=== PATIENT | male | born 1965 | race Caucasian/White ===

== ENCOUNTER 2020-08-19 08:40 | Outpatient (REF) | payer OTHER, SELFPAY ==
--- NOTE | 2020-08-19 08:45 | US_ITS ---
EXAMINATION: US ABDOMEN COMPLETE CLINICAL INFORMATION: Right upper quadrant pain. COMPARISON: None. TECHNIQUE: Real-time imaging of the abdominal viscera. FINDINGS: PANCREAS: The head and the body of pancreas are homogeneous in echotexture. The tail is obscured by overlying gas. ABDOMINAL AORTA: The proximal, mid, and distal segments are normal in caliber. INFERIOR VENA CAVA: Visualized portions are normal. LIVER: The liver is normal size, contour with diffuse increased echogenicity. No focal hepatic lesion. There is no intrahepatic biliary duct dilatation seen. GALLBLADDER: Normal. The gallbladder is physiologically distended without evidence of stones, sludge, polyps, wall thickening or pericholecystic fluid. COMMON BILE DUCT: Normal in caliber measuring 0.3 cm in diameter. RIGHT KIDNEY: Normal. No hydronephrosis. No renal calculi or focal parenchymal lesions. The kidney measures 11.4 cm in maximum dimension. LEFT KIDNEY: There is anechoic cyst midpole measuring 0.9 x 0.8 x 0.6 cm and a lower pole cyst measures 0.5 x 0.5 x 0.8 cm. No hydronephrosis or renal calculi. The kidney measures 11.7 cm in maximum dimension. SPLEEN: Normal. The spleen measures 9.0 cm in maximum dimension. FREE FLUID: None. US/US abdomen complete IMPRESSION: Left renal cyst. No echogenic renal calculi or hydronephrosis. Mild hepatic steatosis without focal lesion. The rest of the abdominal ultrasound is unremarkable.
== END 2020-08-19 08:41 | disposition home or self-care (01) ==
LOC: HO.US 08:40
PROVIDERS: PCP Nurse Practitioner Family; Visit Provider Nurse Practitioner Family
DX: R10.11 Right upper quadrant pain (principal)
CPT/HCPCS: 76700

== ENCOUNTER 2021-08-09 10:05 | Emergency (ER) | payer OTHER, SELFPAY ==
[2021-08-09 10:11] VITALS: BP 150/91; PULSE 97; RESP 20; TEMP 36.1; O2SAT 93; BMI 26.6
[2021-08-09 12:36] LABS: COVID-19 Test Negative (Negative)
--- NOTE | 2021-08-09 14:22 | ED_ITS ---
HPI - URI/Sore Throat General Chief Complaint: Upper Respiratory Symptoms Stated Complaint: covid symptoms Time Seen by Provider: 08/09/21 10:50 Source: patient Mode of arrival: ambulatory Limitations: no limitations History of Present Illness HPI Narrative: 56-year-old male presents the emergency department requesting covid testing. He is asymptomatic family members are sick at home. Fully vaccinated with two doses of pfizer. Denies SOB, CP, D[place], weakness. Eating and drinking well. In good spirits. No other complaints at this time. MD elicited complaint: other (No complaints ) Exacerbating factors: nothing Relieving factors: nothing Associated symptoms: denies other symptoms Treatments prior to arrival: none Related Data Previous Rx's Medication Instructions Recorded duloxetine 30 mg capsule,delayed 30 mg PO DAILY #30 cap 01/06/21 release meloxicam 15 mg tablet 15 mg PO DAILY #30 tab 01/06/21 Allergies Allergy/AdvReac Type Severity Reaction Status Date / Time No Known Allergies Allergy Verified 01/06/21 10:31 Review of Systems Review of Systems: Constitutional : No Weight loss, No Fever, No Chills, No Fatigue, No Malaise ENT/Mouth : No sore throat, No Rhinorrhea Eyes: No Eye Pain, No Swelling, No Redness Cardiovascular : No Chest Pain, No SOB, No Dyspnea on Exertion, No Orthopnea, No Edema, No Palpitations Respiratory : No Cough, No Sputum, No Wheezing Gastrointestinal : No Nausea, No Vomiting, No Diarrhea, No Constipation, No abdominal Pain, No Hematochezia, No Melena Genitourinary : No Dysuria, No Urinary Frequency, No Hematuria, Musculoskeletal : No joint pain, No Myalgias, No Joint Swelling Skin : No Skin Lesions, No rash Neuro : No Weakness, No Numbness, No Dizziness, No Headache Psych : No Anxiety/Panic, No Depression All other systems reviewed and are negative Yes all other systems are reviewed and are negative [facility] Past Medical History Attestation statement: The following information was validated with the patient. Source: old records reviewed and nursing notes reviewed Medical History Anxiety and depression Asthma GERD (gastroesophageal reflux disease) High cholesterol Hypertension Impaired glucose tolerance Insomnia Osteoarthritis of right knee Polysubstance abuse Right upper quadrant abdominal pain Tobacco abuse Surgical History History of lumbar surgery History of surgery on arm Family History Family History Mother Diabetes Kidney failure High blood pressure Renal cancer Father No problems noted. Maternal Grandfather Stomach cancer Maternal Grandmother Skin cancer Social History Social History Housing: Apartment Alcohol intake: never Patient Tobacco Use Status: Current everyday Tobacco user Cigarettes Per Day: 8 Second Hand Smoke Exposure: No Advance Directives: No Advance Directives Information Provided: No service: No Current occupational status: disabled Physical Exam Vital Signs: Vital Signs: Last Vital Signs Temp 96.9 F 08/09/21 10:11 Pulse 97 08/09/21 10:11 Resp 20 08/09/21 10:11 BP 150/91 H 08/09/21 10:11 Pulse Ox 93 08/09/21 10:11 BMI result Body Mass Index 26.6 VSS Appearance: Alert.? Oriented X3.? No acute distress.? Head: Normocephalic, atraumatic, no step-offs or deformities Eyes: Pupils equal, round and reactive to light.?? Neck: Normal inspection.? Neck supple.? CVS: Normal heart rate and rhythm.? Pulses normal.? Respiratory: No respiratory distress.? Breath sounds normal.? Abdomen: Soft and nontender.? Skin: Skin warm and dry.? Normal skin color.? Normal skin turgor.? Extremities: No lower extremity edema.? No calf ttp. 5/5 strength to bilateral upper and lower extremities Neuro: Oriented X 3.? No motor deficit.? No sensory deficit. Course Reevaluation(s) Reevaluation #1: COVID negative today. I have advised him to retest in 2-4 days due to his close contacts. I have advised him on red flag symptoms in have told him to return with new or worsening symptoms. Comfortable discharge home Time: 14:25 MDM - URI/Sore Throat MDM Narrative Medical decision making narrative: 1423 56 yo male presnts requesting covid testing. Is asymptomatic. Fully vaccinated with Pfizer. Physical examination benign Plan is to obtain a COVID test Medical Records Attestation: I reviewed the patient's medical records. Lab Data Attestation: I reviewed the patient's lab results. Labs: Lab Results 08/09/21 Range/Units 11:41 COVID-19 (JAKE) Negative (Negative) COVID-19 Clin Com See Note Critical Care Time Critical Care Time Critical Care Time: No Discharge Plan Discharge Clinical Impression: COVID-19 ruled out by laboratory testing Patient Disposition: Home, Self-Care Additional Instructions: You tested negative today. I suggest retesting in 2-4 days. If you develop severe symptoms weakness, chest pain, shortness of breath present to an emergency department or call 911 Take your medications as prescribed.? If you were prescribed antibiotics today, it is important that you take your medication to their entirety, do not skip any doses, do not finish them early. Follow-up with your primary care provider/family medicine physician assistant this week. Return to the emergency department with new or worsening symptoms. In case of emergency call 911? Prescriptions: No Action meloxicam 15 mg tablet 15 mg PO DAILY Qty: 30 RF: 2 duloxetine 30 mg capsule,delayed release(DR/EC) 30 mg PO DAILY Qty: 30 RF: 3 Referrals: Physician,Unknown J [Primary Care Provider] - 2 days
--- NOTE | 2021-08-09 14:40 | PC.NURSE ---
this patient was seen/discharged by PA in [facility]
== END 2021-08-09 14:41 | disposition home or self-care (01) ==
PROVIDERS: Physician Assistant; Emergency Provider Emergency Medicine
DX: Z20.822 Contact with and (suspected) exposure to COVID-19 (principal); I10 Essential (primary) hypertension; E78.5 Hyperlipidemia, unspecified; F17.200 Nicotine dependence, unspecified, uncomplicated
CPT/HCPCS: 87635; 99283

== ENCOUNTER 2021-09-29 10:28 | Outpatient (REF) | payer OTHER, SELFPAY ==
[2021-09-29 12:46] LABS: Hematocrit 50.4 % (42.0-52.0); Hemoglobin 16.6 g/dl (14.0-18.0); Mean Corpuscular HGB Conc 32.9 g/dl (31.0-36.0); Mean Corpuscular Hemoglobin 32.1 pg (27.0-33.0); Mean Corpuscular Volume 97.5 fL (80.0-98.0); Mean Platelet Volume 11.9 fL (9.4-12.4); Platelet Count 176 X10*3/uL (160-400); Red Blood Count 5.17 X10*6/uL (4.60-5.80); Red Cell Distribution Width 13.8 % (11.0-16.0); White Blood Count 8.9 X10*3/uL (4.8-10.8)
[2021-09-29 13:10] LABS: Alanine Aminotransferase 29 U/L (0-40); Albumin Level 4.6 g/dL (3.5-5.0); Alkaline Phosphatase 81 U/L (39-117); Anion Gap 11 (12-20); Aspartate Amino Transferase 23 U/L (5-37); Bilirubin Total 0.9 mg/dL (0.0-1.0); Blood Urea Nitrogen 12 mg/dL (9-16); Carbon Dioxide 31 mmol/L (22-29); Chloride 104 mmol/L (96-108); Estimated Glomerular Filt Rate > 60; Glucose Random 84 mg/dL (60-115); Potassium 4.3 mmol/L (3.3-5.1); Sodium 142 mmol/L (135-145); Total Protein 7.9 g/dL (6.5-8.0)
[2021-09-29 13:12] LABS: Estimated Average Glucose 117 mg/dL; Hemoglobin A1c % 5.7 %
[2021-09-29 13:34] LABS: TSH reflex Free T4 1.28 uIU/mL (0.32-4.0)
[2021-09-29 13:36] LABS: Prostate Specific Antigen Scr 1.19 ng/mL (<0.05-4.0)
[2021-09-29 13:42] LABS: Folate 16.4 ng/mL (> or = 4.0); Vitamin B12 568 pg/mL (200-900)
[2021-09-29 14:37] LABS: Appearance Urine HAZY; Color Urine YELLOW; Glucose Urine UA NEG (NEG); Leukocyte Esterase Urine NEG (NEG); Nitrite Urine NEG (NEG); PH 5.5 (5.0-8.0); Specific Gravity - Urine >= 1.030 (1.005-1.025); Urine Blood 1+ (NEG); Urine Ketones NEG (NEG); Urine Protein NEG (NEG-TRACE)
[2021-09-29 14:52] LABS: Mucus Urine 1+ /LPF; RBC Urine 0-2 /HPF (0); Squamous Epithelial Cell Urine TRACE /LPF
== END 2021-09-29 10:29 | disposition home or self-care (01) ==
LOC: HO.LAB 10:28
PROVIDERS: Internal Medicine; Visit Provider Nurse Practitioner Family
DX: K21.9 Gastro-esophageal reflux disease without esophagitis (principal); K59.04 Chronic idiopathic constipation; R10.11 Right upper quadrant pain; E11.9 Type 2 diabetes mellitus without complications; Z12.5 Encounter for screening for malignant neoplasm of prostate
CPT/HCPCS: 36415; 80053; 81001; 82607; 82746; 83036; 84153; 84443; 85027; 99202

== ENCOUNTER → 2021-11-03 08:56 | Outpatient (BNVA) | payer OTHER, SELFPAY | PROVIDERS: Visit Provider Nurse Practitioner Family | DX: K21.9 Gastro-esophageal reflux disease without esophagitis (principal); K59.04 Chronic idiopathic constipation; R10.12 Left upper quadrant pain | CPT/HCPCS: 99212 ==

== ENCOUNTER 2023-03-31 15:26 | Emergency (ER) | payer OTHER, SELFPAY ==
[2023-03-31 15:39] VITALS: BP 122/77; PULSE 74; RESP 16; O2SAT 98; BMI 20.6
--- NOTE | 2023-03-31 15:39 | ED_ITS ---
HPI - Abdominal Pain General Chief Complaint: Abdominal Pain Stated Complaint: left side abd pain Related Data Previous Rx's Medication Instructions Recorded duloxetine 30 mg capsule,delayed 30 mg PO DAILY #30 caps 01/06/21 release meloxicam 15 mg tablet 15 mg PO DAILY #30 tabs 01/06/21 methylcellulose (laxative) 500 mg 500 mg PO DAILY #30 tabs 09/29/21 tablet (Citrucel) sennosides 8.6 mg tablet (Natural 8.6 mg PO BEDTIME constipation #30 09/29/21 Senna Laxative) tabs Allergies Allergy/AdvReac Type Severity Reaction Status Date / Time No Known Allergies Allergy Verified 11/03/21 09:19 [facility] Past Medical History Medical History Anxiety and depression Asthma GERD (gastroesophageal reflux disease) High cholesterol Hypertension Impaired glucose tolerance Insomnia Osteoarthritis of right knee Polysubstance abuse Right upper quadrant abdominal pain Tobacco abuse Surgical History History of lumbar surgery History of surgery on arm Family History Family History Mother Diabetes Kidney failure High blood pressure Renal cancer Father No problems noted. Maternal Grandfather Stomach cancer Maternal Grandmother Skin cancer Social History Social History Housing: Apartment Alcohol intake: never Patient Tobacco Use Status: Current everyday Tobacco user Cigarettes Per Day: 8 Second Hand Smoke Exposure: No Advance Directives: No Advance Directives Information Provided: No service: No Current occupational status: disabled Physical Exam ED Vital Signs: BMI result Body Mass Index 20.6 Course Course Course Narrative: This is a rapid medical exam. Deferred additional HPI, ROS, PE to primary provider. 57 yo male with history of anxiety, depression, GERD, HTN, HLD here with complaints of left flank pain x several days. Denies alcohol use/drug use. +urinary retention/urgency, nausea/vomiting. No fevers, chills. Will obtain labs, UA VSS Medical Decision Making Lab Data 03/31/23 16:32 03/31/23 16:33 Labs: Lab Results 03/31/23 03/31/23 Range/Units 16:32 16:33 WBC 12.9 H (4.8-10.8) X10*3/uL RBC 3.82 L D (4.60-5.80) X10*6/uL Hgb 13.0 L D (14.0-18.0) g/dl Hct 37.8 L D (42.0-52.0) % MCV 99.0 H (80.0-98.0) fL MCH 34.0 H (27.0-33.0) pg MCHC 34.4 (31.0-36.0) g/dl RDW 14.2 (11.0-16.0) % Plt Count 177 (160-400) X10*3/uL MPV 10.9 (9.4-12.4) fL Immature Gran % (Auto) 0.4 (0.0-0.4) % Neut % (Auto) 61.3 (45-73) % Lymph % (Auto) 27.4 (20-40) % [place] % (Auto) 9.7 (2-11) % Eos % (Auto) 0.9 (0-4) % Baso % (Auto) 0.3 (0-2) % Lymph # (Auto) 3.5 (1.2-4.9) X10*3/uL [place] # (Auto) 1.3 H (0.1-1.2) X10*3/uL Eos # (Auto) 0.1 (0.0-0.4) X10*3/uL Baso # (Auto) 0.0 (0.0-0.2) X10*3/uL Abs Immat Gran (auto) 0.05 H (0.00-0.03) X10*3/uL Absolute Neuts (auto) 7.9 (2.0-8.3) x10*3/uL Absolute Nucleated RBC 0.000 (0.0-0.012) X10*3/uL Nucleated RBC % (auto) 0.0 (0.0-0.2) /100WBC Sodium 144 (135-145) mmol/L Potassium 3.6 (3.3-5.1) mmol/L Chloride 108 (96-108) mmol/L Carbon Dioxide 30 H (22-29) mmol/L Anion Gap 10 L (12-20) BUN 18 H (9-16) mg/dL Creatinine 1.16 (0.5-1.4) mg/dL Estim Creat Clear Calc 62.0 Estimated GFR > 60 Random Glucose 66 (60-115) mg/dL Calcium 9.8 (8.4-10.2) mg/dL Total Bilirubin 0.5 (0.0-1.0) mg/dL Direct Bilirubin 0.1 (0.0-0.5) mg/dL AST 19 (5-37) U/L ALT 20 (0-40) U/L Alkaline Phosphatase 59 (39-117) U/L Total Protein 6.7 (6.5-8.0) g/dL Albumin 3.9 (3.5-5.0) g/dL Lipase 9 (8-78) U/L Urine Color Dark Yellow Urine Appearance Cloudy Urine pH 5.5 (5.0-9.0) Ur Specific [place] 1.025 (1.005-1.025) Urine Protein 100 (2+) H (Neg-Trace) mg/dL Urine Glucose (UA) Negative (Negative) mg/dL Urine Ketones Negative (Negative) mg/dL Urine Blood Large (3+) H (Negative) Urine Nitrite Negative (Negative) Ur Leukocyte Esterase Small (1+) H (Negative) Urine RBC >20 H (0-2) /HPF Urine WBC 21-50 H (0-5) /HPF Ur Squamous Epith Cells 3-5 (0-2) /HPF Urine Bacteria None Seen (None Seen) Hyaline Casts 3-5 (0-2) /LPF Discharge Plan Discharge Clinical Impression: Diagnosis unknown, Back pain Patient Disposition: Elopement Prescriptions: No Action meloxicam 15 mg tablet 15 mg PO DAILY Qty: 30 2RF duloxetine 30 mg capsule,delayed release(DR/EC) 30 mg PO DAILY Qty: 30 3RF Citrucel 500 mg tablet 500 mg PO DAILY Qty: 30 2RF Rx Instructions: take it with full glass of water sennosides [Natural Senna Laxative] 8.6 mg tablet 8.6 mg PO BEDTIME Qty: 30 3RF Interventions: ED Discharge Assessment Last Done: 03/31/23 18:56 Discharge Date/Time: 03/31/23 18:57
[2023-03-31 16:39] LABS: MANUAL DIFF FLAG NO
[2023-03-31 16:40] LABS: Basophils Percent Auto 0.3 % (0-2); Eosinophils Absolute Auto 0.1 X10*3/uL (0.0-0.4); Eosinophils Percent Auto 0.9 % (0-4); Hematocrit 37.8 % (42.0-52.0); Imm Gran Abs Auto 0.05 X10*3/uL (0.00-0.03); Imm Gran Pct Auto 0.4 % (0.0-0.4); Lymphocytes Absolute Auto 3.5 X10*3/uL (1.2-4.9); Lymphocytes Percent Auto 27.4 % (20-40); Mean Corpuscular HGB Conc 34.4 g/dl (31.0-36.0); Mean Platelet Volume 10.9 fL (9.4-12.4); Monocytes Absolute Auto 1.3 X10*3/uL (0.1-1.2); Monocytes Percent Auto 9.7 % (2-11); Neutrophils Absolute Auto 7.9 x10*3/uL (2.0-8.3); Neutrophils Percent Auto 61.3 % (45-73); Platelet Count 177 X10*3/uL (160-400); Red Blood Count 3.82 X10*6/uL (4.60-5.80); Red Cell Distribution Width 14.2 % (11.0-16.0); White Blood Count 12.9 X10*3/uL (4.8-10.8)
[2023-03-31 16:42] LABS: Appearance Urine Cloudy; Color Urine Dark Yellow; Glucose Urine UA Negative (Negative); Leukocyte Esterase Urine Small (1+) (Negative); Nitrite Urine Negative (Negative); PH 5.5 (5.0-9.0); Specific Gravity - Urine 1.025 (1.005-1.025); UMIC TRIGGER UACC YES; Urine Blood Large (3+) (Negative); Urine Ketones Negative (Negative); Urine Protein 100 (2+) mg/dL (Neg-Trace)
[2023-03-31 16:47] LABS: Bacteria Urine None Seen (None Seen); RBC Urine >20 /HPF (0-2); UACC Culture Trigger YES; WBC Urine 21-50 /HPF (0-5)
[2023-03-31 16:59] LABS: Alanine Aminotransferase 20 U/L (0-40); Albumin Level 3.9 g/dL (3.5-5.0); Alkaline Phosphatase 59 U/L (39-117); Anion Gap 10 (12-20); Aspartate Amino Transferase 19 U/L (5-37); Bilirubin Direct 0.1 mg/dL (0.0-0.5); Bilirubin Total 0.5 mg/dL (0.0-1.0); Blood Urea Nitrogen 18 mg/dL (9-16); Calcium 9.8 mg/dL (8.4-10.2); Carbon Dioxide 30 mmol/L (22-29); Chloride 108 mmol/L (96-108); Estimated Glomerular Filt Rate > 60; Glucose Random 66 mg/dL (60-115); Lipase 9 U/L (8-78); Potassium 3.6 mmol/L (3.3-5.1); Sodium 144 mmol/L (135-145); Total Protein 6.7 g/dL (6.5-8.0)
== END 2023-03-31 18:57 | disposition left against medical advice (07) ==
PROVIDERS: Nurse Practitioner Family; Emergency Provider Emergency Medicine
DX: R10.9 Unspecified abdominal pain (principal); R11.2 Nausea with vomiting, unspecified; R39.198 Other difficulties with micturition
CPT/HCPCS: 36415; 80048; 80076; 81001; 83690; 85025; 87086; 99282; 99283

== ENCOUNTER 2024-05-27 17:59 | Emergency (ER) | payer OTHER, SELFPAY ==
--- NOTE | ~2024-05-27 | XR_ITS ---
EXAMINATION: XR HAND, LEFT CLINICAL INFORMATION: Pain, infection COMPARISON: None available. TECHNIQUE: PA, lateral, and oblique views of the left hand. FINDINGS: The bones are normal. No fracture. Alignment is anatomic. Joint spaces are maintained. No erosions or soft tissue calcifications. No erosions. Soft tissue swelling of the thenar eminence. XR/XR hand LT min 3V IMPRESSION: Soft tissue swelling of the thenar eminence. Electronically signed by: Meagan Painter MD 05/27/2024 06:36 PM EDT RP
[2024-05-27 18:02] VITALS: BP 142/79; PULSE 74; RESP 16; TEMP 36.6; O2SAT 99; BMI 22.1
--- NOTE | 2024-05-27 18:15 | ED.SKABFB ---
HPI - Skin/Abscess/Foreign Bdy General Chief complaint: Wound/Laceration Stated complaint: rt hand wounds Time Seen by Provider: 05/27/24 21:51 Source: patient Mode of arrival: ambulatory Limitations: no limitations History of Present Illness ED Provider: karthikeyan MENDOZA narrative: Patient apparently got burned on the base of left thumb about 3 days ago from the radiator since then wound is open getting infected with swelling and redness no fever no chills Related Data Previous Rx's ?Medication ?Instructions ?Recorded duloxetine 30 mg capsule,delayed 30 mg PO DAILY #30 caps 01/06/21 release meloxicam 15 mg tablet 15 mg PO DAILY #30 tabs 01/06/21 methylcellulose (laxative) 500 mg 500 mg PO DAILY #30 tabs 09/29/21 tablet (Citrucel) sennosides 8.6 mg tablet (Natural 8.6 mg PO BEDTIME constipation #30 09/29/21 Senna Laxative) tabs cephalexin 500 mg capsule 500 mg PO QID 10 days #40 caps 05/27/24 doxycycline hyclate 100 mg tablet 100 mg PO BID #20 tabs 05/27/24 Allergies Allergy/AdvReac Type Severity Reaction Status Date / Time No Known Allergies Allergy Verified 05/27/24 18:16 Review of Systems Review of Systems: Yes all other systems are reviewed and are negative PMFSH Past Medical History Medical History Osteoarthritis of right knee Asthma Insomnia Polysubstance abuse Tobacco abuse GERD (gastroesophageal reflux disease) Anxiety and depression Impaired glucose tolerance Right upper quadrant abdominal pain High cholesterol Hypertension Surgical History History of surgery on arm History of lumbar surgery Family History Family History Mother Diabetes Kidney failure High blood pressure Renal cancer Father No problems noted. Maternal Grandfather Stomach cancer Maternal Grandmother Skin cancer Social History Social History Housing: Apartment Alcohol intake: never Patient Tobacco Use Status: Current everyday Tobacco user Cigarettes Per Day: 8 Second Hand Smoke Exposure: No Advance Directives: No Advance Directives Information Provided: No service: No Current occupational status: disabled Physical Exam Vital Signs: Vital Signs: Last Vital Signs Temp 98.2 F 05/27/24 21:33 Pulse 75 05/27/24 21:33 Resp 16 05/27/24 21:33 BP 132/79 05/27/24 21:33 Pulse Ox 96 05/27/24 21:33 O2 Del Method Room Air 05/27/24 21:33 BMI result Body Mass Index 22.1 Extrem: Hand/finger images: 1. Infected open wound with surrounding swelling and redness no fluctuance neurovascular intact Course Course Course Narrative: This is an RME: Additional HPI, ROS, PE not included below will be deferred to primary provider. RME assessment and note performed by: Mee Gonzáles PA-C This is a 68-mvez-kjd-male, with a hx of HTN, HLD, GERD, anxiety, who presents to the ER with complaints of left hand redness and swelling x 3 days. Patient accidentally burned his left hand on a radiator several days ago. He reports increased pain, swelling, drainage. Patient has lymphangitic spread up into his arm. Plan: Labs, xray, further er eval needed Medications Administered Discontinued Medications Generic Name Dose Route Start Last Admin Trade Name Freq PRN Reason Stop Dose Admin Bacitracin 1 appl 05/27/24 22:12 05/27/24 22:35 Bacitracin Oint 0.9 Gm Packet TOPICAL 05/27/24 22:13 1 appl ONCE ONE Administration Protocol Bacitracin 2 appl 05/27/24 22:34 05/27/24 22:36 Bacitracin Oint 0.9 Gm Packet TOPICAL 05/27/24 22:35 2 appl ONCE ONE Administration Protocol Medical Decision Making Medical Decision Making MDM Narrative: Wound cleaned antibiotic applied give doxycycline cephalexin x-ray negative for deeper bony changes Lab Data MDM Lab Attestation statement: I reviewed the patient's lab results. 05/27/24 18:33 05/27/24 18:33 Labs: Lab Results 05/27/24 Range/Units 18:33 WBC 13.5 H (4.8-10.8) X10*3/uL RBC 4.24 L (4.60-5.80) X10*6/uL Hgb 14.4 (14.0-18.0) g/dl Hct 41.3 L (42.0-52.0) % MCV 97.4 (80.0-98.0) fL MCH 34.0 H (27.0-33.0) pg MCHC 34.9 (31.0-36.0) g/dl RDW 13.7 (11.0-16.0) % Plt Count 183 (160-400) X10*3/uL MPV 10.2 (9.4-12.4) fL Immature Gran % (Auto) 0.2 (0.0-0.4) % Neut % (Auto) 67.6 (45-73) % Lymph % (Auto) 20.7 (20-40) % [place] % (Auto) 10.2 (2-11) % Eos % (Auto) 0.9 (0-4) % Baso % (Auto) 0.4 (0-2) % Lymph # (Auto) 2.8 (1.2-4.9) X10*3/uL [place] # (Auto) 1.4 H (0.1-1.2) X10*3/uL Eos # (Auto) 0.1 (0.0-0.4) X10*3/uL Baso # (Auto) 0.1 (0.0-0.2) X10*3/uL Abs Immat Gran (auto) 0.03 (0.00-0.03) X10*3/uL Absolute Neuts (auto) 9.1 H (2.0-8.3) x10*3/uL Absolute Nucleated RBC 0.000 (0.0-0.012) X10*3/uL Nucleated RBC % (auto) 0.0 (0.0-0.2) /100WBC ESR 18 H (0-15) MM/HR Sodium 143 (135-145) mmol/L Potassium 3.3 (3.3-5.1) mmol/L Chloride 106 (96-108) mmol/L Carbon Dioxide 27 (22-29) mmol/L Anion Gap 13 (12-20) BUN 12 (9-16) mg/dL Creatinine 0.72 (0.5-1.4) mg/dL Estim Creat Clear Calc 106.0 Estimated GFR > 60 Random Glucose 82 (60-115) mg/dL Lactic Acid 0.8 (0.5-2.0) mmol/L Calcium 9.6 (8.4-10.2) mg/dL Magnesium 2.4 (1.6-2.6) mg/dL Total Bilirubin 0.4 (0.0-1.0) mg/dL Direct Bilirubin 0.1 (0.0-0.5) mg/dL AST 23 (5-37) U/L ALT 21 (0-40) U/L Alkaline Phosphatase 86 (39-117) U/L C-Reactive Protein 2.76 H (< or = 0.50) mg/dL Total Protein 7.6 (6.5-8.0) g/dL Albumin 4.3 (3.5-5.0) g/dL Independent Interpretation I performed an independent interpretation of an: Plain X-Ray Radiology Impression Discussion of test interpretation with radiology: I have reviewed the radiologist's reading. Discharge Plan Discharge Clinical Impression: Wound cellulitis Patient Disposition: Home, Self-Care Instructions: Cellulitis (ED) Additional Instructions: Local care of the wound as advised Take antibiotic as prescribed Follow with your PCP as needed Prescriptions: New cephalexin 500 mg capsule 500 mg PO QID 10 Days Qty: 40 0RF doxycycline hyclate 100 mg tablet 100 mg PO BID Qty: 20 0RF No Action meloxicam 15 mg tablet 15 mg PO DAILY Qty: 30 2RF duloxetine 30 mg capsule,delayed release(DR/EC) 30 mg PO DAILY Qty: 30 3RF Citrucel 500 mg tablet 500 mg PO DAILY Qty: 30 2RF Rx Instructions: take it with full glass of water sennosides [Natural Senna Laxative] 8.6 mg tablet 8.6 mg PO BEDTIME Qty: 30 3RF Print Language: Portuguese
[2024-05-27 18:49] LABS: MANUAL DIFF FLAG NO
[2024-05-27 18:51] LABS: Basophils Absolute Auto 0.1 X10*3/uL (0.0-0.2); Basophils Percent Auto 0.4 % (0-2); Eosinophils Absolute Auto 0.1 X10*3/uL (0.0-0.4); Eosinophils Percent Auto 0.9 % (0-4); Hematocrit 41.3 % (42.0-52.0); Hemoglobin 14.4 g/dl (14.0-18.0); Imm Gran Abs Auto 0.03 X10*3/uL (0.00-0.03); Imm Gran Pct Auto 0.2 % (0.0-0.4); Lymphocytes Absolute Auto 2.8 X10*3/uL (1.2-4.9); Lymphocytes Percent Auto 20.7 % (20-40); Mean Corpuscular HGB Conc 34.9 g/dl (31.0-36.0); Mean Corpuscular Volume 97.4 fL (80.0-98.0); Mean Platelet Volume 10.2 fL (9.4-12.4); Monocytes Absolute Auto 1.4 X10*3/uL (0.1-1.2); Monocytes Percent Auto 10.2 % (2-11); Neutrophils Absolute Auto 9.1 x10*3/uL (2.0-8.3); Neutrophils Percent Auto 67.6 % (45-73); Platelet Count 183 X10*3/uL (160-400); Red Blood Count 4.24 X10*6/uL (4.60-5.80); Red Cell Distribution Width 13.7 % (11.0-16.0); White Blood Count 13.5 X10*3/uL (4.8-10.8)
[2024-05-27 19:02] LABS: Lactic Acid 0.8 mmol/L (0.5-2.0)
[2024-05-27 19:08] LABS: Alanine Aminotransferase 21 U/L (0-40); Albumin Level 4.3 g/dL (3.5-5.0); Alkaline Phosphatase 86 U/L (39-117); Anion Gap 13 (12-20); Aspartate Amino Transferase 23 U/L (5-37); Bilirubin Direct 0.1 mg/dL (0.0-0.5); Bilirubin Total 0.4 mg/dL (0.0-1.0); Blood Urea Nitrogen 12 mg/dL (9-16); C Reactive Protein 2.76 mg/dL (< or = 0.50); Calcium 9.6 mg/dL (8.4-10.2); Carbon Dioxide 27 mmol/L (22-29); Chloride 106 mmol/L (96-108); Estimated Glomerular Filt Rate > 60; Glucose Random 82 mg/dL (60-115); Magnesium 2.4 mg/dL (1.6-2.6); Potassium 3.3 mmol/L (3.3-5.1); Sodium 143 mmol/L (135-145); Total Protein 7.6 g/dL (6.5-8.0)
[2024-05-27 19:53] LABS: Erythrocyte Sedimentation Rate 18 MM/HR (0-15)
[2024-05-27 21:33] VITALS: BP 132/79; PULSE 75; RESP 16; TEMP 36.8; O2SAT 96
[2024-05-27] MEDS: Bacitracin Oint 0.9 GM PACKET 1 APPL TOPICAL (22:35)
[2024-05-27] MEDS: Bacitracin Oint 0.9 GM PACKET 2 APPL TOPICAL (22:36)
[2024-05-27] MEDS: cephALEXin 500 MG CAPSULE PO (22:42)
[2024-05-27] MEDS: Doxycycline Monohydrate 100 MG CAPSULE PO (22:42)
[2024-05-27] MEDS: Diphth,Pertus(ACell),Tet Adult 0.5 ML SYRINGE IM (22:42)
[2024-05-27 22:46] VITALS: BP 144/84; PULSE 75; RESP 18; TEMP 36.8; O2SAT 97
[2024-05-27 22:48] VITALS: BP 144/84; PULSE 75; RESP 18; TEMP 36.8; O2SAT 97
== END 2024-05-27 22:48 | disposition home or self-care (01) ==
PROVIDERS: Physician Assistant Medical; Emergency Provider Internal Medicine
DX: L03.012 Cellulitis of left finger (principal); T23.012A Burn of unspecified degree of left thumb (nail), initial encounter; X16.XXXA Contact with hot heating appliances, radiators and pipes, initial encounter; Y93.9 Activity, unspecified; Y92.039 Unspecified place in apartment as the place of occurrence of the external cause; Y99.9 Unspecified external cause status; Z23 Encounter for immunization
CPT/HCPCS: 36415; 73130; 80048; 80076; 83605; 83735; 85025; 85652; 86140; 87040; 90471; 90715; 99284

== ENCOUNTER 2024-12-25 12:04 | Emergency (ER) | payer OTHER, SELFPAY ==
--- NOTE | ~2024-12-25 | XR_ITS ---
EXAMINATION: XR HAND, LEFT CLINICAL INFORMATION: pain, numb COMPARISON: None available. TECHNIQUE: PA, lateral, and oblique views of the left hand. FINDINGS: No fracture, dislocation, or suspicious bone lesion. No malalignment. Negative ulnar variance. Mild osteoarthrosis present in the first MCP joint, as well as the first CMC joint and radiocarpal joint. Normal-appearing PIPs and DIPs. No soft tissue abnormalities. XR/XR hand LT min 3V IMPRESSION: No acute findings left hand. Electronically signed by: Jesse Pardo MD 12/25/2024 01:11 PM EDT
[2024-12-25 12:33] VITALS: BP 141/83; PULSE 71; RESP 18; TEMP 37; O2SAT 99; BMI 23.8
--- NOTE | 2024-12-25 12:36 | ED.GENADULT ---
HPI - General Adult General Chief complaint: Extremity Injury, Upper Stated complaint: l hand swelling Related Data Previous Rx's ?Medication ?Instructions ?Recorded duloxetine 30 mg capsule,delayed 30 mg PO DAILY #30 caps 01/06/21 release meloxicam 15 mg tablet 15 mg PO DAILY #30 tabs 01/06/21 methylcellulose (laxative) 500 mg 500 mg PO DAILY #30 tabs 09/29/21 tablet (Citrucel) sennosides 8.6 mg tablet (Natural 8.6 mg PO BEDTIME constipation #30 09/29/21 Senna Laxative) tabs cephalexin 500 mg capsule 500 mg PO QID 10 days #40 caps 05/27/24 doxycycline hyclate 100 mg tablet 100 mg PO BID #20 tabs 05/27/24 Allergies Allergy/AdvReac Type Severity Reaction Status Date / Time No Known Allergies Allergy Verified 12/25/24 12:38 [facility] Past Medical History Medical History Osteoarthritis of right knee Asthma Insomnia Polysubstance abuse Tobacco abuse GERD (gastroesophageal reflux disease) Anxiety and depression Impaired glucose tolerance Right upper quadrant abdominal pain High cholesterol Hypertension Surgical History History of surgery on arm History of lumbar surgery Family History Family History Mother Diabetes Kidney failure High blood pressure Renal cancer Father No problems noted. Maternal Grandfather Stomach cancer Maternal Grandmother Skin cancer Social History Social History Housing: Apartment Alcohol intake: never Patient Tobacco Use Status: Current everyday Tobacco user Cigarettes Per Day: 8 Second Hand Smoke Exposure: No Advance Directives: No Advance Directives Information Provided: No service: No Current occupational status: disabled Physical Exam ED Vital Signs: BMI result Body Mass Index 23.8 Course Course Course Narrative: This is an RME: Additional HPI, ROS, PE not included below will be deferred to primary provider. RME assessment and note performed by: Mee Neal PA-C This is a 19-dduu-bwb-male, with a PMHx of HTN not on medications, HLD, GERD, asthma, arthritis, who presents to the ER with complaints of left hand pain x weeks. Reports that the hand feels numb as well as his BL legs. No CP/SOB. Plan: Labs, EKG, xr hand Reevaluation(s) Reevaluation #1: Patient left without completing treatment. Medical Decision Making Lab Data 12/25/24 13:16 12/25/24 13:16 Labs: Lab Results 12/25/24 Range/Units 13:16 WBC 9.7 (4.8-10.8) X10*3/uL RBC 4.33 L (4.60-5.80) X10*6/uL Hgb 14.5 (14.0-18.0) g/dl Hct 42.3 (42.0-52.0) % MCV 97.7 (80.0-98.0) fL MCH 33.5 H (27.0-33.0) pg MCHC 34.3 (31.0-36.0) g/dl RDW 14.4 (11.0-16.0) % Plt Count 159 L (160-400) X10*3/uL MPV 10.7 (9.4-12.4) fL Immature Gran % (Auto) 0.3 (0.0-0.4) % Neut % (Auto) 65.8 (45-73) % Lymph % (Auto) 23.0 (20-40) % [place] % (Auto) 9.6 (2-11) % Eos % (Auto) 1.0 (0-4) % Baso % (Auto) 0.3 (0-2) % Lymph # (Auto) 2.2 (1.2-4.9) X10*3/uL [place] # (Auto) 0.9 (0.1-1.2) X10*3/uL Eos # (Auto) 0.1 (0.0-0.4) X10*3/uL Baso # (Auto) 0.0 (0.0-0.2) X10*3/uL Abs Immat Gran (auto) 0.03 (0.00-0.03) X10*3/uL Absolute Neuts (auto) 6.4 (2.0-8.3) x10*3/uL Absolute Nucleated RBC 0.000 (0.0-0.012) X10*3/uL Nucleated RBC % (auto) 0.0 (0.0-0.2) /100WBC Sodium 143 (135-145) mmol/L Potassium 3.9 (3.3-5.1) mmol/L Chloride 107 (96-108) mmol/L Carbon Dioxide 29 (22-29) mmol/L Anion Gap 11 L (12-20) BUN 14 (9-16) mg/dL Creatinine 0.79 (0.5-1.4) mg/dL Estim Creat Clear Calc 86.4 Estimated GFR > 60 Random Glucose 85 (60-115) mg/dL Calcium 9.8 (8.4-10.2) mg/dL Magnesium 1.9 (1.6-2.6) mg/dL Total Bilirubin 0.4 (0.0-1.0) mg/dL Direct Bilirubin 0.1 (0.0-0.5) mg/dL AST 20 (5-37) U/L ALT 17 (0-40) U/L Alkaline Phosphatase 83 (39-117) U/L Troponin I High Sens < 2.7 (<3.5-35.0) ng/L Total Protein 7.0 (6.5-8.0) g/dL Albumin 4.2 (3.5-5.0) g/dL Discharge Plan Discharge Clinical Impression: Hand pain, left Patient Disposition: Left W/O Completing Treatment Prescriptions: No Action cephalexin 500 mg capsule 500 mg PO QID 10 Days Qty: 40 0RF doxycycline hyclate 100 mg tablet 100 mg PO BID Qty: 20 0RF meloxicam 15 mg tablet 15 mg PO DAILY Qty: 30 2RF duloxetine 30 mg capsule,delayed release(DR/EC) 30 mg PO DAILY Qty: 30 3RF Citrucel 500 mg tablet 500 mg PO DAILY Qty: 30 2RF Rx Instructions: take it with full glass of water sennosides [Natural Senna Laxative] 8.6 mg tablet 8.6 mg PO BEDTIME Qty: 30 3RF Discharge Date/Time: 12/25/24 19:34
--- NOTE | 2024-12-25 12:41 | ECG_ITS ---
Test Reason : L arm pain Blood Pressure : */* mmHG Vent. Rate : 62 BPM Atrial Rate : 62 BPM P-R Int : 162 ms QRS Dur : 104 ms QT Int : 382 ms P-R-T Axes : 72 73 54 degrees QTcB Int : 387 ms Normal sinus rhythm Minimal voltage criteria for LVH, may be normal variant ( Sokolow-Roman ) Borderline ECG No previous ECGs available Referred By: Mee Neal Electronically Signed By: MARIAM URBINA
[2024-12-25 13:20] LABS: MANUAL DIFF FLAG NO
[2024-12-25 13:24] LABS: Basophils Percent Auto 0.3 % (0-2); Eosinophils Absolute Auto 0.1 X10*3/uL (0.0-0.4); Hematocrit 42.3 % (42.0-52.0); Hemoglobin 14.5 g/dl (14.0-18.0); Imm Gran Abs Auto 0.03 X10*3/uL (0.00-0.03); Imm Gran Pct Auto 0.3 % (0.0-0.4); Lymphocytes Absolute Auto 2.2 X10*3/uL (1.2-4.9); Mean Corpuscular HGB Conc 34.3 g/dl (31.0-36.0); Mean Corpuscular Hemoglobin 33.5 pg (27.0-33.0); Mean Corpuscular Volume 97.7 fL (80.0-98.0); Mean Platelet Volume 10.7 fL (9.4-12.4); Monocytes Absolute Auto 0.9 X10*3/uL (0.1-1.2); Monocytes Percent Auto 9.6 % (2-11); Neutrophils Absolute Auto 6.4 x10*3/uL (2.0-8.3); Neutrophils Percent Auto 65.8 % (45-73); Platelet Count 159 X10*3/uL (160-400); Red Blood Count 4.33 X10*6/uL (4.60-5.80); Red Cell Distribution Width 14.4 % (11.0-16.0); White Blood Count 9.7 X10*3/uL (4.8-10.8)
[2024-12-25 13:38] LABS: Alanine Aminotransferase 17 U/L (0-40); Albumin Level 4.2 g/dL (3.5-5.0); Alkaline Phosphatase 83 U/L (39-117); Anion Gap 11 (12-20); Aspartate Amino Transferase 20 U/L (5-37); Bilirubin Direct 0.1 mg/dL (0.0-0.5); Bilirubin Total 0.4 mg/dL (0.0-1.0); Blood Urea Nitrogen 14 mg/dL (9-16); Calcium 9.8 mg/dL (8.4-10.2); Carbon Dioxide 29 mmol/L (22-29); Chloride 107 mmol/L (96-108); Creatinine Clr Calc Pharmacy 86.4; Estimated Glomerular Filt Rate > 60; Glucose Random 85 mg/dL (60-115); Magnesium 1.9 mg/dL (1.6-2.6); Potassium 3.9 mmol/L (3.3-5.1); Sodium 143 mmol/L (135-145)
[2024-12-25 13:46] LABS: Troponin-I High Sensitivity < 2.7 ng/L (<3.5-35.0)
== END 2024-12-25 19:34 | disposition left against medical advice (07) ==
PROVIDERS: Physician Assistant Medical; Emergency Provider Emergency Medicine
DX: M79.602 Pain in left arm (principal); M79.642 Pain in left hand; M25.442 Effusion, left hand; R94.31 Abnormal electrocardiogram [ECG] [EKG]; F17.210 Nicotine dependence, cigarettes, uncomplicated; Z79.899 Other long term (current) drug therapy
CPT/HCPCS: 36415; 73130; 80048; 80076; 83735; 84484; 85025; 93005; 99281; 99283

== ENCOUNTER → 2024-12-25 12:40 | Outpatient (BNV) | payer OTHER, SELFPAY | PROVIDERS: Visit Provider Radiology Diagnostic Radiology | DX: M79.642 Pain in left hand (principal) | CPT/HCPCS: 73130 ==

== ENCOUNTER → 2024-12-25 12:41 | Outpatient (BNV) | payer OTHER, SELFPAY | PROVIDERS: Emergency Provider Emergency Medicine; Visit Provider Internal Medicine | DX: M79.602 Pain in left arm (principal) | CPT/HCPCS: 93010 ==